=== PATIENT | female | born 1995 | race Caucasian/White ===

== ENCOUNTER 2024-01-22 21:58 | Emergency (ER) | payer SELFPAY ==
[~2024-01-22] VITALS: Ht 154.9 cm; Wt 63.0 kg
[2024-01-22 22:06] VITALS: O2SAT 100
[2024-01-22 22:43] LABS: BASOPHILS % 0.7 % (0.0-2.0); EOSINOPHILS % 1.7 % (0.0-5.0); HEMATOCRIT. 43.6 % (36.0-48.0); HEMOGLOBIN. 14.9 g/dL (12.0-16.0); LYMPHOCYTES % 26.4 % (20.0-50.0); MEAN CORPUSCULAR HEMOGLOBIN 32.3 pg (28.0-32.0); MEAN CORPUSCULAR HGB CONC 34.3 g/dL (31.0-37.0); MEAN CORPUSCULAR VOLUME 94.2 fL (81.0-99.0); MEAN PLATELET VOLUME 8.5 fl (7.4-10.4); MONOCYTES % 6.6 % (2.0-8.0); NEUTROPHILS % 64.6 % (40.0-76.0); PLATELET 326 x1000/uL (130-400); RED BLOOD CELL COUNT 4.62 mill/uL (4.2-5.4); RED CELL DISTRIBUTION WIDTH 12.8 % (11.6-14.6); WHITE BLOOD COUNT 9.2 x1000/uL (4.5-11.0)
[2024-01-22 22:50] LABS: CLARITY URINE CLEAR (CLEAR); COLOR URINE YELLOW (YELLOW); GLUCOSE URINE NEGATIVE (NEGATIVE); KETONES URINE NEGATIVE (NEGATIVE); LEUKOCYTE ESTERASE URINE NEGATIVE (NEGATIVE); NITRITE URINE NEGATIVE (NEGATIVE); OCCULT BLOOD URINE NEGATIVE (NEGATIVE); PROTEIN URINE NEGATIVE (NEGATIVE); SPECIFIC GRAVITY URINE 1.006 (1.005-1.030)
[2024-01-22 22:53] LABS: CARBON DIOXIDE 26 mEq/L (21-32); CHLORIDE 107 mEq/L (98-107); POTASSIUM 3.3 mEq/L (3.5-5.1); SODIUM 139 mEq/L (136-145)
[2024-01-22 22:54] LABS: CALCIUM 9.4 mg/dL (8.7-10.4)
[2024-01-22 22:56] LABS: HCG SCREEN NEGATIVE
[2024-01-22 22:59] LABS: CREATININE 0.7 mg/dL (0.6-1.0); GLUCOSE 105 mg/dL (70-105)
[2024-01-22 23:00] LABS: ALANINE AMINOTRANSFERASE 65 IU/L (10-49); ASPARTATE AMINOTRANSFERASE 167 IU/L (<34)
[2024-01-22 23:01] LABS: ALBUMIN 4.3 g/dL (3.2-4.8); BILIRUBIN DIRECT 0.2 mg/dL (<=3.0); BILIRUBIN TOTAL 0.4 mg/dL (0.1-1.0); PROTEIN TOTAL 7.6 g/dL (6.0-8.3)
[2024-01-22 23:06] LABS: UREA NITROGEN BLOOD < 5 mg/dL (9-23)
[2024-01-22] MEDS: SODIUM CHLORIDE 0.9% 1,000 ML IV ONE (23:30)
[2024-01-23] MEDS: ONDANSETRON HCL 4MG/2ML INJ IV ONE
[2024-01-23] MEDS: KETOROLAC 15MG/ML VIAL IV ONE (00:03)
[2024-01-23] MEDS ORDERED: NAPR-1074 MT (02:00)
[2024-01-23] MEDS ORDERED: ONDA4TAB50 MT (02:00)
[2024-01-23 02:14] VITALS: BP 128/88; PULSE 89; RESP 16; TEMP 36.89184; O2SAT 100
[2024-01-23] MEDS ORDERED: IOHEXOL-300 100 ML BOTTLE ONE (02:25)
== END 2024-01-23 02:20 | disposition home or self-care (01) ==
LOC: ER 21:58
DX: N83.202 Unspecified ovarian cyst, left side (principal); K76.0 Fatty (change of) liver, not elsewhere classified; I10 Essential (primary) hypertension
CPT/HCPCS: 80076; 80048; 81003; 84703; 83690; 85025; 36415; 76830; 76856; 96361; 99285; 80320; 74177; 96374; 96375; J1885; J2405; J7030; Q9967; Z7610; G0480